=== PATIENT | female | born 1990 | race Caucasian/White ===

== ENCOUNTER 2016-06-17 06:17 | Day surgery (SDC) | payer MEDICAID ==
[2016-06-14 11:05] LABS: BASOPHILS 0.3 % (0.0-2.0); EOSINOPHILS 0.7 % (0-7); HEMATOCRIT 43.3 % (36.0-48.0); HEMOGLOBIN 14.2 g/dL (12-16); IMMATURE GRANULOCYTES 0.1 % (0-5); LYMPHOCYTES 32.9 % (15-50); MCH 29.8 pg (26.0-34.0); MCHC 32.8 g/dL (31.0-37.0); MCV 90.8 fL (80.0-100.0); MEAN PLATELET VOLUME 10.3 fL (7.4-10.4); MONOCYTES 8.7 % (2-11); NEUTROPHILS 57.3 % (40-80); PLATELET COUNT 256 10x3/uL (130-400); RBC 4.77 10x6/uL (4.00-5.40); RDW 13.3 % (11.5-14.5); WBC 7.6 10x3/uL (4.8-10.8)
[~2016-06-17] VITALS: Ht 160 cm; Wt 74.4 kg
[~2016-06-17 06:17] MED LIST: HYDROCODONE-APA1 TAB PO; IBUPROFEN600 MG PO; PRENATAL COMPLE1 TAB PO
[2016-06-17 06:30] VITALS: BP 107/60; Ht 160 cm; Wt 74.4 kg
[2016-06-17 07:02] LABS: HCG URINE NEGATIVE (NEGATIVE)
--- NOTE | 2016-06-17 11:20 | NUR ---
CARE TRANSFERED TO DALJIT RN AT 1119
--- NOTE | 2016-06-22 13:16 | OP ---
PATIENT NAME: BC DRAPER MEDICAL RECORD: [id number] :89 LOCATION:D.OPS ADMISSION DATE: SURGEON: KYRA CARROLL MD DATE OF OPERATION: 06/17/2016 POSTOPERATIVE DIAGNOSES: 1. Chronic pelvic pain. 2. Severe adhesive disease. 3. Right ovarian cyst. 4. Endometriosis. SURGEON: Kyra Carroll MD ANESTHESIA: General endotracheal anesthesia with Minerva Diaz CRNA. PROCEDURES: 1. Diagnostic laparoscopy. 2. Lysis of adhesions. 3. Excision of endometriosis implant. 4. Drainage of right ovarian cyst. FINDINGS: Normal appearing right round ligament, left ovary. Tubal interruption bilaterally consistent with prior tubal ligation. Wide adhesive bands extending from the uterus to the anterior abdominal wall arising in the region of the left adnexa including the left round ligament and the adhesive band. A 2-3 cm right ovarian simple cyst. Endometriotic implant of the anterior cul-de-sac. Small amount of free fluid in posterior cul-de-sac. DESCRIPTION OF PROCEDURE: After informed consent was given, the patient was taken to the operating room where general endotracheal anesthesia was placed and found to be adequate. She was placed in a dorsal lithotomy position in [facility]. She was prepped and draped sterilely including a vaginal prep. A catheter was placed into the bladder and bladder drained with approximately 50 cc of clear urine return. A bivalve speculum was then placed in the vagina, the cervix visualized and grasped anteriorly with a single-tooth tenaculum. A Pelosi uterine manipulator was then placed with ease and the bivalve speculum removed. The patient was placed into a ski position, gloves were changed. An infraumbilical incision was then made with a scalpel, and with elevation of the anterior abdominal wall, a 5-mm Optiview port was placed under direct visualization. There was no obvious injury to any underlying structures. The patient was placed into Trendelenburg and pelvic structures were brought into view with findings as listed above. Two additional 5-mm ports were placed in the right and left lower quadrant under direct visualization. Hemostasis was assured. We elevated the uterus using the manipulator and the left ureter was identified and noted to be peristalsing normally. It was well out of the way of the region of adhesions. An volleyball assistant coach then held an atraumatic grasper containing the adhesion band extending from the uterus and the Gyrus and Harmonic scalpel were used to cauterize and transect these bands of adhesions, freeing them up the best that could be accomplished. The right ovarian cyst was then isolated, punctured with the Harmonic scalpel blade and drained with clear drainage noted. The implant of endometriosis of the anterior cul-de-sac was grasped with the [place], elevated and a very superficial excision of this tissue was performed with the laparoscopic scissors and this tiny piece of tissue was passed off the field as specimen. The pelvis was irrigated profusely and noted to be hemostatic. The two 5-mm ports were removed under direct OPERATIVE REPORT [id number] BC DRAPER S visualization. The abdomen was desufflated. The 5-mm umbilical port was removed and the abdomen was further desufflated. All 3 port sites were closed with 3-0 Monocryl in a subcuticular fashion with Dermabond, Steri-Strips, and Band-Aids applied atop. Attention was then turned down below. The bivalve speculum was replaced into the vagina. The Pelosi uterine manipulator and single tooth tenaculum were removed. The silver nitrate and Bovie cautery were used at the tenaculum sites with excellent hemostasis noted. The bivalve speculum was removed. The patient was returned to a supine position, awakened and taken into the recovery room in stable condition. The patient tolerated procedure well. Sponge, lap, needle, and instrument counts were reported correct times 2. SPECIMENS: Peritoneal biopsy with suspected endometriotic implant. ESTIMATED BLOOD LOSS: Minimal. URINE OUTPUT: 50 cc. COMPLICATIONS: None. TRANSINT:[id number] Voice Confirmation ID: [id number] DOCUMENT ID: [id number] KYRA CARROLL MD at 1316 CC: [id number] DICTATION DATE: 06/17/16 1124 DYNO TECHNICIAN: 06/17/16 1320 [facility] 06/17/16 [id number] [place] [address]
== END 2016-06-17 13:00 | disposition home or self-care (01) ==
LOC: D.OPS 06:17 → D.PAN 08:30 → D.OPS 08:30 → D.PAN 09:45 → D.OPS 13:00
PROVIDERS: Specialist
DX: N83.291 Other ovarian cyst, right side (principal); N80.3 Endometriosis of pelvic peritoneum

== ENCOUNTER 2016-10-18 08:09 | Emergency (ER) | payer MEDICAID ==
[2016-06-17 06:30] VITALS: BMI 29.1
[2016-10-18 08:33] LABS: BASOPHILS 0.3 % (0-2); EOSINOPHILS 1.8 % (0-7); HEMATOCRIT 43.4 % (36.0-48.0); HEMOGLOBIN 14.5 g/dL (12-16); IMMATURE GRANULOCYTES 0.1 % (0-5); LYMPHOCYTES 33.9 % (15-50); MCH 29.8 pg (26.0-34.0); MCHC 33.4 g/dL (31.0-37.0); MCV 89.1 fL (80.0-100.0); MEAN PLATELET VOLUME 10.5 fL (7.4-10.4); MONOCYTES 7.1 % (2-11); NEUTROPHILS 56.8 % (40-80); PLATELET COUNT 260 10x3/uL (130-400); RBC 4.87 10x6/uL (4.00-5.40); RDW 13.9 % (11.5-14.5); WBC 7.1 10x3/uL (4.8-10.8)
[2016-10-18 08:47] LABS: ALBUMIN 4.1 g/dL (3.4-5.0); ALKALINE PHOSPHATASE 84 U/L (46-116); ALT (SGPT) 52 U/L (10-68); CALC OSMOLALITY 280 mosm/kg (275-300); CALCIUM 8.9 mg/dL (8.5-10.1); CARBON DIOXIDE 26.3 mmol/L (21.0-32.0); CHLORIDE - SERUM 106 mmol/L (98-107); CREATININE - SERUM 0.8 mg/dL (0.6-1.3); GLUCOSE 104 mg/dL (74-106); PROTEIN - SERUM 7.5 g/dL (6.4-8.2); SODIUM 141 mmol/L (136-145); UREA NITROGEN 12 mg/dL (7-18); eGFR NON AFRICAN AMERICAN > 90 mL/min (90-120)
[2016-10-18 09:06] LABS: APPEARANCE CLEAR (CLEAR); BACTERIA FEW /hpf (NONE SEEN); BILIRUBIN NEGATIVE (NEGATIVE); COLOR YELLOW (YELLOW); GLUCOSE NEGATIVE (NEGATIVE); KETONE NEGATIVE (NEGATIVE); LEUKOCYTE ESTERASE TRACE (NEGATIVE); NITRITE NEGATIVE (NEGATIVE); PROTEIN NEGATIVE (NEGATIVE); RED CELLS - URINE 0-5 /hpf (0-5); SPECIFIC GRAVITY 1.015 (1.005-1.020); UROBILINOGEN NORMAL (NORMAL); WHITE CELLS - URINE 0-5 /hpf (0-5)
== END 2016-10-18 09:29 | disposition home or self-care (01) ==
LOC: D.ER 08:09
PROVIDERS: Emergency Medicine
DX: R10.9 Unspecified abdominal pain (principal); N80.9 Endometriosis, unspecified

== ENCOUNTER 2016-11-18 10:03 | Emergency (ER) | payer MEDICAID ==
[2016-06-17 06:30] VITALS: BMI 29.1
== END 2016-11-18 11:41 | disposition home or self-care (01) ==
LOC: D.ER 10:03
DX: H66.92 Otitis media, unspecified, left ear (principal); R51 Headache

== ENCOUNTER 2017-03-29 10:57 | Emergency (ER) | payer OTHER ==
[2016-06-17 06:30] VITALS: BMI 29.1
[2017-03-29 12:10] LABS: APPEARANCE HAZY (CLEAR); BILIRUBIN NEGATIVE (NEGATIVE); COLOR YELLOW (YELLOW); GLUCOSE NEGATIVE (NEGATIVE); KETONE NEGATIVE (NEGATIVE); NITRITE NEGATIVE (NEGATIVE); PROTEIN NEGATIVE (NEGATIVE); UROBILINOGEN NORMAL (NORMAL)
[2017-03-29 12:13] LABS: BACTERIA MODERATE /hpf (NONE SEEN); RED CELLS - URINE 0-5 /hpf (0-5); WHITE CELLS - URINE OCC /hpf (0-5)
[2017-03-29 12:21] LABS: HCG URINE NEGATIVE (NEGATIVE)
== END 2017-03-29 13:20 | disposition home or self-care (01) ==
LOC: D.ER 10:57
PROVIDERS: Physician Assistant
DX: J20.9 Acute bronchitis, unspecified (principal); J06.9 Acute upper respiratory infection, unspecified; M26.622 Arthralgia of left temporomandibular joint; R10.32 Left lower quadrant pain; R10.31 Right lower quadrant pain; M54.5 Low back pain; N76.0 Acute vaginitis

== ENCOUNTER 2017-05-07 08:43 | Emergency (ER) | payer OTHER ==
[2016-06-17 06:30] VITALS: BMI 29.1
[2017-05-07 10:09] LABS: APPEARANCE HAZY (CLEAR); BACTERIA FEW /hpf (NONE SEEN); BILIRUBIN NEGATIVE (NEGATIVE); COLOR YELLOW (YELLOW); GLUCOSE NEGATIVE (NEGATIVE); KETONE NEGATIVE (NEGATIVE); MUCUS <1+ /lpf (NONE SEEN); NITRITE NEGATIVE (NEGATIVE); PROTEIN 2+ mg/dL (NEGATIVE); RED CELLS - URINE 0-5 /hpf (0-5); SPECIFIC GRAVITY 1.015 (1.005-1.020); UROBILINOGEN NORMAL (NORMAL); WHITE CELLS - URINE OCC /hpf (0-5)
== END 2017-05-07 11:56 | disposition home or self-care (01) ==
LOC: D.ER 08:43
PROVIDERS: Emergency Medicine
DX: M54.5 Low back pain (principal); S39.012A Strain of muscle, fascia and tendon of lower back, initial encounter; X58.XXXA Exposure to other specified factors, initial encounter; Y93.89 Activity, other specified; Y92.89 Other specified places as the place of occurrence of the external cause

== ENCOUNTER 2017-08-27 06:10 | Day surgery (SDC) | payer MEDICAID ==
[2017-08-26 13:10] LABS: BASOPHILS 0.4 % (0-2); EOSINOPHILS 0.8 % (0-7); HEMATOCRIT 41.1 % (36.0-48.0); HEMOGLOBIN 13.9 g/dL (12-16); IMMATURE GRANULOCYTES 0.1 % (0-5); LYMPHOCYTES 32.3 % (15-50); MCH 30.2 pg (26.0-34.0); MCHC 33.8 g/dL (31.0-37.0); MCV 89.2 fL (80.0-100.0); MEAN PLATELET VOLUME 10.1 fL (7.4-10.4); MONOCYTES 5.7 % (2-11); NEUTROPHILS 60.7 % (40-80); PLATELET COUNT 228 10x3/uL (130-400); RBC 4.61 10x6/uL (4.00-5.40); RDW 13.1 % (11.5-14.5); WBC 7.4 10x3/uL (4.8-10.8)
[~2017-08-27] VITALS: Ht 160 cm; Wt 79.4 kg
--- NOTE | ~2017-08-27 | OP ---
PATIENT NAME: BC DRAPER MEDICAL RECORD: [id number] :89 LOCATION:D.OPS ADMISSION DATE: SURGEON: QUEENIE LOO MD DATE OF OPERATION: 08/27/2017 PREOPERATIVE DIAGNOSIS: Pelvic pain. POSTOPERATIVE DIAGNOSES: 1. Adhesive disease. 2. Endometriosis. PROCEDURES: 1. Diagnostic laparoscopy. 2. Lysis of adhesions. 3. Fulguration of endometriosis. SURGEON: Queenie Loo MD ANESTHESIOLOGIST: Henri Hamilton MD ANESTHETIC: General. FINDINGS: Enlarged uterus with adhesions of the anterior uterus to the bladder. Active endometriosis was identified in the left cornual region. Small cyst was seen on the left ovary. Otherwise, the pelvis and abdomen were unremarkable. SPECIMEN REMOVED: None. EBL: Minimal. FLUIDS: One liter lactated Ringer's. URINE OUTPUT: Quantity sufficient voided prior to the procedure. COMPLICATIONS: None. DRAINS: None. INDICATION: The patient is a 27-year-old female with history of endometriosis, on Lupron, with minimal results. The patient was consented for diagnostic laparoscopy and any indicated procedure. Risks and benefits of this procedure have been described as well as limitations. DESCRIPTION OF PROCEDURE: After informed consent was assured, the patient was taken to the operating room, where anesthetic was obtained without difficulty. The patient was now prepped and draped in usual sterile fashion. An incision was made in the umbilicus to accommodate a 5-mm trocar, which was inserted without difficulty. Pneumoperitoneum was developed and accessory ports were placed 2 fingerbreadths above the symphysis in the midline. Through this port, a blunt probe was used to sweep the bowel free of the pelvis after the patient has been placed in Trendelenburg position. Adhesions immediately were identified and these were taken down with a Bovie cautery and a hook. The endometriosis that was identified on left cornual region was ablated using monopolar cautery. The pelvis was inspected and hemostasis at the operative site was assured. Pneumoperitoneum was released as the accessory trocar was OPERATIVE REPORT [id number] BC DRAPER removed. Primary trocar was now removed. Skin was reapproximated with a subcuticular stitch and sterile dressing was applied. Sponge, lap, and needle counts were correct times 2. TRANSINT:[id number] Voice Confirmation ID: [id number] DOCUMENT ID: [id number] 09/01/2017 Edited to add procedure list, dmm. QUEENIE LOO MD at 1648 CC: [id number] DICTATION DATE: 08/27/17 1306 CARVER HAND: 08/27/17 1410 [facility] 08/27/17 [address] [id number] [place] [id number]
[~2017-08-27 06:10] MED LIST changes: +HYDROCODON-ACE1 EAC7 PO; +LEUPROLIDE 3.75 MG; +PHENERGAN25 M1 PO; +TYLENOL #4 W/CO1 TAB PO
[2017-08-27 06:41] VITALS: BP 110/55; Ht 160 cm; Wt 79.4 kg
[2017-09-16] MEDS ORDERED: BUTALB-APAP-CA1 EACH PO (14:59)
== END 2017-08-27 15:39 | disposition home or self-care (01) ==
LOC: D.OPS 06:10 → D.PAN 10:00 → D.OPS 10:00
PROVIDERS: Obstetrics & Gynecology
DX: N80.3 Endometriosis of pelvic peritoneum (principal); N85.2 Hypertrophy of uterus; N83.202 Unspecified ovarian cyst, left side; N73.6 Female pelvic peritoneal adhesions (postinfective); Z01.812 Encounter for preprocedural laboratory examination

== ENCOUNTER 2017-09-17 05:11 | Inpatient (IN) | payer MEDICAID ==
[2017-09-16 15:38] LABS: CALC OSMOLALITY 278 mosm/kg (275-300); CALCIUM 9.3 mg/dL (8.5-10.1); CARBON DIOXIDE 28.1 mmol/L (21.0-32.0); CHLORIDE - SERUM 105 mmol/L (98-107); CREATININE - SERUM 0.9 mg/dL (0.6-1.3); GLUCOSE 84 mg/dL (74-106); POTASSIUM - SERUM 3.9 mmol/L (3.5-5.1); SODIUM 141 mmol/L (136-145); UREA NITROGEN 10 mg/dL (7-18); eGFR NON AFRICAN AMERICAN 79 mL/min (90-120)
[2017-09-16 15:41] LABS: BASOPHILS 0.3 % (0-2); EOSINOPHILS 1.4 % (0-7); HEMATOCRIT 42.3 % (36.0-48.0); HEMOGLOBIN 14.3 g/dL (12-16); IMMATURE GRANULOCYTES 0.1 % (0-5); MCHC 33.8 g/dL (31.0-37.0); MCV 88.9 fL (80.0-100.0); MEAN PLATELET VOLUME 10.1 fL (7.4-10.4); MONOCYTES 9.3 % (2-11); NEUTROPHILS 48.9 % (40-80); RBC 4.76 10x6/uL (4.00-5.40); WBC 6.9 10x3/uL (4.8-10.8)
[2017-09-16 15:50] LABS: PLATELET COUNT 304 10x3/uL (130-400)
[2017-09-17] VITALS (10 sets, daily range): BP systolic 92–119; BP diastolic 57–72; Ht 160 cm; Wt 79.5 kg
[~2017-09-17] VITALS: Ht 160 cm; Wt 79.5 kg
--- NOTE | ~2017-09-17 | OP ---
PATIENT NAME: BC DRAPER MEDICAL RECORD: [id number] :89 LOCATION:[facility] D.1273 ADMISSION DATE:09/17/17 SURGEON: TONE LOO MD DATE OF OPERATION: 09/17/2017 PREOPERATIVE DIAGNOSES: 1. Pelvic pain. 2. Pelvic adhesive disease. POSTOPERATIVE DIAGNOSES: 1. Pelvic pain. 2. Pelvic adhesive disease. PROCEDURE PERFORMED: 1. Exploratory laparotomy. 2. Supracervical hysterectomy with bilateral salpingectomy. 3. Lysis of adhesion. SURGEON: Tone Loo MD THERAPEUTIC RECREATION ASSISTANT: Nerissa. ANESTHESIOLOGIST: Henri Hamilton MD ANESTHESIA: General anesthetic with endotracheal intubation. FINDINGS: Uterus is adhesed to the abdominal wall. Bladder is densely adhesed to uterus. SPECIMEN REMOVED: Uterus and tubes without cervix. SPECIMENS DISPOSITION: Pathology. ESTIMATED BLOOD LOSS: Less than or equal to 50 cc. FLUIDS: 1200 cc lactated Ringer's. URINE OUTPUT: 50 cc of clear urine. COMPLICATIONS: None. DRAINS: [place] to gravity. INDICATIONS: The patient is a 27-year-old female with known history of pelvic pain. The patient has had diagnostic laparoscopy in the past with showing dense adhesions of the uterus to the abdominal wall. The patient is consented for exploratory laparotomy and hysterectomy, planned cervical conservation. DESCRIPTION OF PROCEDURE: After informed consent was assured, the patient was taken to the operating room where anesthetic was obtained without difficulty. The patient was now prepped and draped in usual sterile fashion. The patient has had prior section. An incision was made over the old scar and carried down to the underlying layer of the fascia, which was opened in the midline and extended laterally. The rectus bellies were in the midline. Then, peritoneum was entered. Immediate adhesions were encountered. OPERATIVE REPORT [id number] BC DRAPER These were taken down with Metzenbaum scissors, fundus to the abdominal wall. Once the uterus was mobilized and anatomy was restored through sharp dissection, Trish clamps were placed over the cornual region of the right and left side of the uterus. Uterus is elevated and the left round ligament is grasped with a Kate clamp. This is transfixed and the round ligament was entered. Dissection was carried out posteriorly and tube is undermined with a clamp and it was passed through the opening that has been made in the broad ligament. This pedicle was mobilized and then made hemostatic with [id number] stitch. Dissection continued down along the left side of the uterus until the vascular bundle was reached. Dissection is taken to the midline of the bladder off the uterus sharply. The vessels of the left side were clamped. Attention was now directed to the right side where the right round ligament was elevated. It is transfixed with a stitch and entered with Bovie cautery. The dissection was carried down over the anterior leaf of the broad ligament and the bladder flap was developed. A window was now made in the posterior leaf and the tube was incorporated to this clamp and the pedicle mobilized. [id number] stitch is applied for hemostasis. Dissection was continued along the right side and the right vascular bundle was clamped. The pedicles mobilized with scissors and Trish stitch applied here for hemostasis. The left vascular bundle was now addressed and mobilized with scissors in like manner and Trish stitch applied. Dissection was carried out with 1 more straight clamp on both right and left side. At this point, the uterus was removed from the attachment of the cervix and the endocervical canal cauterized. The cervical stump was now closed. The pelvis was copiously irrigated with water and irrigant removed. The patient now has the fascia closed in a running fashion with absorbable stitch. The subcutaneous tissues were irrigated, bleeding vessels cauterized, and the skin reapproximated. Sponge, lap, and needle count was correct as a sterile dressing was applied. The patient went to the recovery area in stable condition. TRANSINT:[id number] Voice Confirmation ID: [id number] DOCUMENT ID: [id number] TONE LOO MD at 1144 CC: [id number] DICTATION DATE: 10/15/17 0846 PEDIATRIC PSYCHOLOGIST: 10/15/17 1222 [facility] 09/18/17 [id number] [place] [address]
[~2017-09-17 05:11] MED LIST changes: +BUTALB-APAP-CA1 EACH PO
[2017-09-17 06:02] LABS: HCG URINE NEGATIVE (NEGATIVE)
[2017-09-18 00:35] VITALS: BP 98/55
[2017-09-18 04:15] VITALS: BP 100/56
[2017-09-18 08:30] VITALS: BP 118/62
== END 2017-09-18 15:38 | disposition home or self-care (01) | DRG 983 ==
LOC: D.SDCHOLD 05:11 → D.LD 05:11 → D.SDCHOLD 07:30 → D.LD 09:22
PROVIDERS: Obstetrics & Gynecology
PROC: 0UT74ZZ Resection of Bilateral Fallopian Tubes, Percutaneous Endoscopic Approach (ICD-10-PCS; 2017-09-17)
PROC: 0UT94ZL Resection of Uterus, Supracervical, Percutaneous Endoscopic Approach (ICD-10-PCS; principal; 2017-09-17 07:30)
DX: R10.2 Pelvic and perineal pain (principal); N73.6 Female pelvic peritoneal adhesions (postinfective); N32.89 Other specified disorders of bladder

== ENCOUNTER 2017-09-23 09:14 | Emergency (ER) | payer MEDICAID ==
[2017-09-17 10:28] VITALS: BMI 31.0
== END 2017-09-23 12:25 | disposition home or self-care (01) ==
LOC: D.ER 09:14
DX: G89.18 Other acute postprocedural pain (principal); L76.82 Other postprocedural complications of skin and subcutaneous tissue

== ENCOUNTER 2017-10-10 17:08 | Emergency (ER) | payer MEDICAID ==
[2017-09-17 10:28] VITALS: BMI 31.0
[2017-10-10 17:58] LABS: BASOPHILS 0.4 % (0-2); EOSINOPHILS 1.5 % (0-7); HEMATOCRIT 42.3 % (36.0-48.0); HEMOGLOBIN 14.4 g/dL (12-16); IMMATURE GRANULOCYTES 0.3 % (0-5); LYMPHOCYTES 27.2 % (15-50); MCH 29.9 pg (26.0-34.0); MCV 87.9 fL (80.0-100.0); MONOCYTES 8.2 % (2-11); NEUTROPHILS 62.4 % (40-80); PLATELET COUNT 271 10x3/uL (130-400); RBC 4.81 10x6/uL (4.00-5.40); RDW 13.2 % (11.5-14.5)
== END 2017-10-10 20:11 | disposition home or self-care (01) ==
LOC: D.ER 17:08
PROVIDERS: Family Medicine
DX: S16.1XXA Strain of muscle, fascia and tendon at neck level, initial encounter (principal); V43.52XA Car driver injured in collision with other type car in traffic accident, initial encounter; Y93.89 Activity, other specified; Y92.410 Unspecified street and highway as the place of occurrence of the external cause; S89.92XA Unspecified injury of left lower leg, initial encounter

== ENCOUNTER 2018-01-13 10:54 | Emergency (ER) | payer MEDICAID ==
[~2018-01-13] VITALS: Ht 160 cm; Wt 81.4 kg
[2018-01-13 11:02] VITALS: Ht 160 cm; Wt 81.4 kg
[2018-01-13 11:45] LABS: APPEARANCE SL CLDY (CLEAR); BACTERIA MANY /hpf (NONE SEEN); BILIRUBIN NEGATIVE (NEGATIVE); COLOR YELLOW (YELLOW); GLUCOSE NEGATIVE (NEGATIVE); KETONE NEGATIVE (NEGATIVE); MUCUS <1+ /lpf (NONE SEEN); NITRITE NEGATIVE (NEGATIVE); PROTEIN NEGATIVE (NEGATIVE); RED CELLS - URINE OCC /hpf (0-5); SPECIFIC GRAVITY 1.015 (1.005-1.020); UROBILINOGEN NORMAL (NORMAL)
[2018-01-13 11:59] LABS: BASOPHILS 0.4 % (0-2); EOSINOPHILS 1.9 % (0-7); HEMATOCRIT 39.1 % (36.0-48.0); HEMOGLOBIN 13.3 g/dL (12-16); IMMATURE GRANULOCYTES 0.1 % (0-5); MCH 29.6 pg (26.0-34.0); MCV 86.9 fL (80.0-100.0); MEAN PLATELET VOLUME 9.9 fL (7.4-10.4); MONOCYTES 8.1 % (2-11); NEUTROPHILS 56.5 % (40-80); PLATELET COUNT 221 10x3/uL (130-400); RDW 13.2 % (11.5-14.5); WBC 7.2 10x3/uL (4.8-10.8)
[2018-01-13 12:15] LABS: ALBUMIN 3.6 g/dL (3.4-5.0); ALKALINE PHOSPHATASE 92 U/L (46-116); ALT (SGPT) 33 U/L (10-68); BILIRUBIN - TOTAL 0.19 mg/dL (0.2-1.3); CALC OSMOLALITY 276 mosm/kg (275-300); CALCIUM 8.5 mg/dL (8.5-10.1); CARBON DIOXIDE 25.4 mmol/L (21.0-32.0); CHLORIDE - SERUM 106 mmol/L (98-107); CREATININE - SERUM 0.8 mg/dL (0.6-1.3); GLUCOSE 88 mg/dL (74-106); POTASSIUM - SERUM 3.7 mmol/L (3.5-5.1); PROTEIN - SERUM 6.9 g/dL (6.4-8.2); SODIUM 140 mmol/L (136-145); UREA NITROGEN 9 mg/dL (7-18); eGFR NON AFRICAN AMERICAN 90 mL/min (90-120)
[2018-01-13 12:26] LABS: CKMB 0.4 U/L (0.0-3.6); CREATINE KINASE 58 UL (21-215); TROPONIN-I < 0.017 ng/mL (0.000-0.060)
[2018-01-13 12:50] LABS: INR 1.01 (0.85-1.17); PROTIME 12.9 SECONDS (11.6-15.0)
[2018-01-13 12:51] LABS: D-DIMER-QUANTITATIVE < 0.27 ug/mLFEU (0.20-0.54)
[2018-01-13] MEDS ORDERED: ZOFRAN ODT4 MG/UDTAB PO (13:13)
[2018-01-13] MEDS ORDERED: PHENAZOPYRIDIN200 MG PO (13:13)
[2018-01-13] MEDS ORDERED: KEFLEX500 MG PO (13:13)
[2018-01-13] MEDS ORDERED: MACROBID100 MG PO (13:13)
[2018-01-13 13:48] VITALS: BP 107/67
== END 2018-01-13 13:50 | disposition home or self-care (01) ==
LOC: D.ER 10:54
PROVIDERS: Family Medicine
DX: R05 Cough (principal); N39.0 Urinary tract infection, site not specified; R30.0 Dysuria; R53.81 Other malaise; R53.83 Other fatigue; R11.0 Nausea; I45.10 Unspecified right bundle-branch block

== ENCOUNTER 2018-04-15 08:54 | Emergency (ER) | payer MEDICAID ==
[~2018-04-15] VITALS: Ht 160 cm; Wt 86.4 kg
[~2018-04-15 08:54] MED LIST changes: +KEFLEX500 MG PO; +MACROBID100 MG PO; +PHENAZOPYRIDIN200 MG PO; +ZOFRAN ODT4 MG/UDTAB PO
[2018-04-15 09:25] VITALS: Ht 160 cm; Wt 86.4 kg
[2018-04-15] MEDS ORDERED: OMEPRAZOLE20 M1 PO (10:40)
[2018-04-15] MEDS ORDERED: VOLTAREN75 MG PO (10:40)
[2018-04-15 10:50] VITALS: BP 121/87
== END 2018-04-15 10:51 | disposition home or self-care (01) ==
LOC: D.ER 08:54
DX: R68.84 Jaw pain (principal); Y04.2XXA Assault by strike against or bumped into by another person, initial encounter; Y93.89 Activity, other specified; Y92.89 Other specified places as the place of occurrence of the external cause; F17.200 Nicotine dependence, unspecified, uncomplicated

== ENCOUNTER → 2018-07-07 09:24 | Outpatient (CLI) | payer MEDICAID ==
[2018-04-15 09:25] VITALS: BMI 33.7
[~2018-07-07 09:24] MED LIST changes: +OMEPRAZOLE20 M1 PO; +VOLTAREN75 MG PO
== END | disposition home or self-care (01) ==
LOC: D.US 09:24
DX: N63.21 Unspecified lump in the left breast, upper outer quadrant (principal)

== ENCOUNTER 2018-10-15 07:49 | Emergency (ER) | payer MEDICAID ==
[~2018-10-15] VITALS: Ht 160 cm; Wt 81.8 kg
[2018-10-15 07:52] VITALS: Ht 160 cm; Wt 81.8 kg
[2018-10-15] MEDS ORDERED: LEUPROLIDE 3.75 MG (07:55)
[2018-10-15 08:13] LABS: APPEARANCE CLEAR (CLEAR); BILIRUBIN NEGATIVE (NEGATIVE); COLOR YELLOW (YELLOW); GLUCOSE NEGATIVE (NEGATIVE); KETONE NEGATIVE (NEGATIVE); NITRITE NEGATIVE (NEGATIVE); PROTEIN NEGATIVE (NEGATIVE); SPECIFIC GRAVITY 1.015 (1.005-1.020); UROBILINOGEN NORMAL (NORMAL)
[2018-10-15 08:15] LABS: BASOPHILS 0.4 % (0-2); EOSINOPHILS 2.5 % (0-7); HEMATOCRIT 42.9 % (36.0-48.0); HEMOGLOBIN 14.3 g/dL (12-16); IMMATURE GRANULOCYTES 0.3 % (0-5); LYMPHOCYTES 23.6 % (15-50); MCH 29.9 pg (26.0-34.0); MCHC 33.3 g/dL (31.0-37.0); MCV 89.6 fL (80.0-100.0); MEAN PLATELET VOLUME 9.7 fL (7.4-10.4); MONOCYTES 8.1 % (2-11); NEUTROPHILS 65.1 % (40-80); RBC 4.79 10x6/uL (4.00-5.40); RDW 13.1 % (11.5-14.5); WBC 10.6 10x3/uL (4.8-10.8)
[2018-10-15 08:16] LABS: PLATELET COUNT 268 10x3/uL (130-400)
[2018-10-15 08:25] LABS: ALBUMIN 3.4 g/dL (3.4-5.0); ALKALINE PHOSPHATASE 81 U/L (46-116); ALT (SGPT) 37 U/L (10-68); AMYLASE - SERUM 46 U/L (25-115); CALC OSMOLALITY 284 mosm/kg (275-300); CALCIUM 8.6 mg/dL (8.5-10.1); CARBON DIOXIDE 26.8 mmol/L (21.0-32.0); CHLORIDE - SERUM 107 mmol/L (98-107); GLUCOSE 97 mg/dL (74-106); LIPASE 141 U/L (73-393); PROTEIN - SERUM 6.6 g/dL (6.4-8.2); SODIUM 142 mmol/L (136-145); UREA NITROGEN 18 mg/dL (7-18)
[2018-10-15 08:29] LABS: CREATININE - SERUM 0.7 mg/dL (0.6-1.3); eGFR NON AFRICAN AMERICAN > 90 mL/min (90-120)
[2018-10-15 08:42] LABS: HCG URINE NEGATIVE (NEGATIVE)
[2018-10-15] MEDS ORDERED: LOMOTIL 2.5-0.1 EAC1 PO (09:37)
[2018-10-15] MEDS ORDERED: ZOFRAN ODT4 MG/UDTAB PO (09:37)
[2018-10-15 10:54] VITALS: BP 107/62
== END 2018-10-15 10:55 | disposition home or self-care (01) ==
LOC: D.ER 07:49
PROVIDERS: Emergency Medicine
DX: R10.9 Unspecified abdominal pain (principal); R19.7 Diarrhea, unspecified; E83.42 Hypomagnesemia; R11.10 Vomiting, unspecified

== ENCOUNTER 2019-01-19 08:24 | Emergency (ER) | payer MEDICAID ==
[~2019-01-19] VITALS: Ht 160 cm; Wt 82.3 kg
[~2019-01-19 08:24] MED LIST changes: +LOMOTIL 2.5-0.1 EAC1 PO
[2019-01-19 08:36] VITALS: BP 112/66; Ht 160 cm; Wt 82.3 kg
[2019-01-19] MEDS ORDERED: HYDROCODONE-IB1 EAC3 PO (08:39)
[2019-01-19 09:31] LABS: BASOPHILS 0.3 % (0-2); EOSINOPHILS 1.9 % (0-7); HEMOGLOBIN 13.8 g/dL (12-16); IMMATURE GRANULOCYTES 0.3 % (0-5); MCH 29.7 pg (26.0-34.0); MCHC 34.5 g/dL (31.0-37.0); MCV 86.2 fL (80.0-100.0); MEAN PLATELET VOLUME 9.8 fL (7.4-10.4); MONOCYTES 7.5 % (2-11); PLATELET COUNT 260 10x3/uL (130-400); RBC 4.64 10x6/uL (4.00-5.40); RDW 13.3 % (11.5-14.5); WBC 6.4 10x3/uL (4.8-10.8)
[2019-01-19 09:45] LABS: ALBUMIN 3.6 g/dL (3.4-5.0); ALKALINE PHOSPHATASE 76 U/L (46-116); ALT (SGPT) 20 U/L (10-68); BILIRUBIN - TOTAL 0.19 mg/dL (0.2-1.3); CALC OSMOLALITY 282 mosm/kg (275-300); CARBON DIOXIDE 26.8 mmol/L (21.0-32.0); CHLORIDE - SERUM 107 mmol/L (98-107); CREATININE - SERUM 0.8 mg/dL (0.6-1.3); GLUCOSE 95 mg/dL (74-106); PROTEIN - SERUM 6.6 g/dL (6.4-8.2); SODIUM 143 mmol/L (136-145); UREA NITROGEN 7 mg/dL (7-18); eGFR NON AFRICAN AMERICAN 89 mL/min (90-120)
== END 2019-01-19 10:15 | disposition home or self-care (01) ==
LOC: D.ER 08:24
PROVIDERS: Family Medicine
DX: R05 Cough (principal); J20.9 Acute bronchitis, unspecified; J06.9 Acute upper respiratory infection, unspecified

== ENCOUNTER 2019-03-19 08:15 | Emergency (ER) | payer MEDICAID ==
[~2019-03-19] VITALS: Ht 160 cm; Wt 81.8 kg
[~2019-03-19 08:15] MED LIST changes: +HYDROCODONE-IB1 EAC3 PO
[2019-03-19 08:23] VITALS: Ht 160 cm; Wt 81.8 kg
[2019-03-19 08:50] LABS: BASOPHILS 0.3 % (0-2); EOSINOPHILS 1.5 % (0-7); HEMATOCRIT 42.1 % (36.0-48.0); IMMATURE GRANULOCYTES 0.1 % (0-5); LYMPHOCYTES 20.4 % (15-50); MCH 30.3 pg (26.0-34.0); MCHC 33.3 g/dL (31.0-37.0); MCV 91.1 fL (80.0-100.0); MEAN PLATELET VOLUME 9.9 fL (7.4-10.4); MONOCYTES 6.9 % (2-11); NEUTROPHILS 70.8 % (40-80); PLATELET COUNT 280 10x3/uL (130-400); RBC 4.62 10x6/uL (4.00-5.40); WBC 6.7 10x3/uL (4.8-10.8)
[2019-03-19 09:09] LABS: HCG SERUM NEGATIVE (NEGATIVE)
[2019-03-19 09:10] LABS: CALC OSMOLALITY 283 mosm/kg (275-300); CALCIUM 8.4 mg/dL (8.5-10.1); CARBON DIOXIDE 25.7 mmol/L (21.0-32.0); CHLORIDE - SERUM 108 mmol/L (98-107); CREATININE - SERUM 0.8 mg/dL (0.6-1.3); GLUCOSE 116 mg/dL (74-106); POTASSIUM - SERUM 4.1 mmol/L (3.5-5.1); SODIUM 142 mmol/L (136-145); UREA NITROGEN 13 mg/dL (7-18); eGFR NON AFRICAN AMERICAN 89 mL/min (90-120)
[2019-03-19 09:16] LABS: ALBUMIN 3.7 g/dL (3.4-5.0); ALKALINE PHOSPHATASE 72 U/L (46-116); ALT (SGPT) 28 U/L (10-68); AMYLASE - SERUM 42 U/L (25-115); BILIRUBIN - TOTAL 0.13 mg/dL (0.2-1.3); LIPASE 103 U/L (73-393); PROTEIN - SERUM 6.8 g/dL (6.4-8.2)
[2019-03-19 09:20] LABS: APPEARANCE CLEAR (CLEAR); BILIRUBIN NEGATIVE (NEGATIVE); COLOR STRAW (YELLOW); GLUCOSE NEGATIVE (NEGATIVE); KETONE NEGATIVE (NEGATIVE); NITRITE NEGATIVE (NEGATIVE); PROTEIN NEGATIVE (NEGATIVE); SPECIFIC GRAVITY 1.015 (1.005-1.020); UROBILINOGEN NORMAL (NORMAL)
[2019-03-19] MEDS ORDERED: LEVSIN/ANASP0.125 MG PO (11:19)
[2019-03-19 12:00] VITALS: BP 116/70
== END 2019-03-19 12:00 | disposition home or self-care (01) ==
LOC: D.ER 08:15
PROVIDERS: Family Medicine
DX: R10.11 Right upper quadrant pain (principal)